=== PATIENT | male | born 1970 | race Caucasian/White ===

== ENCOUNTER 2024-10-05 12:33 | Outpatient (AMB) | payer OTHER, SELFPAY ==
[2024-10-05 12:59] VITALS: BP 150/90; PULSE 80; RESP 18; TEMP 36.1; O2SAT 97; BMI 32.7
--- NOTE | 2024-10-05 12:59 | MHC.PC.OV ---
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 Establish care Anger Control Counselor Required: No Accompanied by: Daughter Allergies No Known Allergies Allergy (Verified 10/05/24 13:09) Medication List - Last Reconciled 10/05/24 by BRAD Fairbanks No Known Home Meds Tobacco use date assessed: 10/05/24 Dental Screening Dental Screen Date: 10/05/24 Did you have a dental visit in the last 12 months?: Yes Did you have a dental problem in the last 6 months where you did not have access to dental care?: No Was dental information given to patient?: Patient has dentist HPI Glycerin Supervisor Establish care HPI Details The patient is 54 year old [place] speaking male. 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 Specialist: no OBGYN:n/a Past medical history: htn Medications:not on any medications Family HX:mother had ovarian cancer Problem: His blood pressure was noted to be elevated this year, but prior he has been in good health reports using salt, but not sure what is consider a large amount He denies smoking and only drinks beers socially He denies MANCIA, dizziness or lightheadedness denies chest pain, sob, or heart palpitation Denies abdominal pain or change in bowel habits Denies urinary symptoms 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 1. Little interest or pleasure in doing things: not at all 2. Feeling down, depressed, or hopeless: not at all 3. Trouble falling or staying asleep, or sleeping too much: not at all 4. Feeling tired or having little energy: not at all 5. Poor appetite or overeating: not at all 6. Feeling bad about yourself - or that you are a failure or have let yourself or your family down: not at all 7. Trouble concentrating on things, such as reading the newspaper or watching television: not at all 8. Moving or speaking so slowly that other people could have noticed. Or the opposite - being so fidgety or restless that you have been moving around a lot more than usual: not at all 9. Thoughts that you would be better off or of hurting yourself in some way: not at all Total score: 0 Depression Screening Interpretation: Negative Depression Screening Done: Yes 19604 - PHQ-9 Billing: Yes Source: Developed by Drs. Ariel Boss, Aarti Campos, Ronald Vargas and colleagues, with an educational yaya from [employer] [place]. Thrive Questionnaire Date Thrive assessed: 10/05/24 I am a: Patient What is your living situation today?: I have a steady place to live Within the past 12 months, did the food you bought not last and you didn't have the money to get more?: Never true Within the past 12 months, did you worry whether your food would run out before you got money to buy more?: Never true Do you have trouble paying for medicines?: No Do you have trouble getting transportation to medical appointments?: No Do you have trouble paying your heating and electricity bill?: No Do you have trouble taking care of your child, family member or friend?: No Do you have trouble with day-to-day activities such as bathing, preparing meals, shopping, managing finances, etc.?: No Are you currently unemployed and looking for a job?: No Are you interested in more education?: No Please select the resources that you would like help with: None Currently or been in a relationship where the following occur: No concerns reported THRIVE Score: 0 AUDIT C Alcohol Use Questionnaire (AUDIT-C) 1. How often do you have a drink containing alcohol?: Monthly or less 2. How many drinks containing alcohol do you have on a typical day when you are drinking?: 1 or 2 3. How often do you have six or more drinks on one occasion?: Never Total Score: 1 VEDA-7 AMB Questionnaire VEDA-7 Date VEDA - 7 assessed: 10/05/24 Feeling nervous, anxious, or on edge: 0 = Not at all Not being able to stop or control worryin = Not at all Worrying too much about different things: 0 = Not at all Trouble relaxin = Not at all Being so restless that it is hard to sit still: 0 = Not at all Becoming easily annoyed or irritable: 0 = Not at all Feeling afraid as if something awful might happen: 0 = Not at all Total VEDA-7 score (0-4 normal; 5-9 mild; 10-14 moderate; 15-21 severe): 0 Source: Developed by Drs. Ariel Boss, Aarti Campos, Ronald Vargas and colleagues, with an educational yaya from [employer] [place]. VEDA-7 Assessment Billing VEDA-7 Assessment Tool: VEDA-7 Assessment 88112 Review of Systems Const Denies headache(s) Eyes Denies loss of vision ENT Denies vertigo, Denies dizziness, Denies headache(s) and Denies sore throat Card Denies chest pain, Denies leg edema and Denies lightheadedness Resp Denies cough, Denies hemoptysis and Denies wheezing GI Denies abdominal pain, Denies melena, Denies constipation, Denies diarrhea and Denies vomiting Denies dysuria, Denies urinary frequency and Denies urinary urgency Musc Denies arthralgias, Denies joint swelling, Denies numbness and Denies tingling Neuro Denies Abnormal speech present, Denies behavioral changes, Denies vertigo, Denies dizziness, Denies headache(s), Denies loss of vision, Denies memory loss, Denies numbness and Denies tingling Psych Denies anxiety, Denies behavioral changes, Denies depression, Denies memory loss and Denies panic attacks Francisco Javier/Lymph Denies easy bleeding and Denies easy bruising Aller/Immun Denies wheezing Physical exam (Primary Care) Vital Signs: Last Vital Signs Temp 97 F 10/05/24 12:59 Pulse 80 10/05/24 12:59 Resp 18 10/05/24 12:59 BP 158/94 H 10/05/24 13:39 Pulse Ox 97 10/05/24 12:59 Oxygen Delivery Method Room Air 10/05/24 12:59 BMI result Body Mass Index 32.7 Tobacco/Smoking Status: Tobacco use Status Tobacco use date assessed 10/05/24 10/05/24 13:09 Patient Tobacco Use Status Never used Tobacco 10/05/24 13:09 e-Cigarette/Vaping Use Never Used 10/05/24 13:09 PHQ-9: PHQ-9 Score PHQ-9: Total score 0 10/05/24 13:11 Depression Screening Interpretation: Negative Thrive Assessment: Date of Thrive Assessment Date Thrive assessed 10/05/24 10/05/24 13:09 Currently or been in a relationship where the following occur: No concerns reported Const General: healthy appearing, no acute distress, alert and awake Nutritional Appearance: well nourished Orientation/consciousness: oriented to person, oriented to place and oriented to time HENMT Ears: TM's normal bilaterally General nose exam: Normal nasal mucous membranes and turbinates present Eyes Conjunctivae: conjunctivae normal Sclerae: sclerae normal Pupils: Equal, round and reactive pupils present Neck Neck: Yes no lymphadenopathy and Yes no JVD Thyroid: Thyroid normal Carotids: no bruits Resp Effort & Inspection: normal respiratory effort and not tachypneic Auscultation: no crackles, no rales, no rhonchi and no wheezes Cardio Rate: regular rate Rhythm: regular rhythm Heart sounds: no murmurs and normal S1 and S2 GI Palpation (GI): Soft to palpation, nontender, no hepatomegaly and no splenomegaly Auscultation: normal bowel sounds Skin General skin exam: no rashes or lesions noted and dry skin Neuro General: oriented to person, oriented to place and oriented to time Cranial nerves: Yes Equal, round and reactive pupils present Speech: No Abnormal speech present Gait exam (Neuro): Normal gait present Motor exam (neuro): no tremor noted Extrem Right upper extremity: full ROM Left upper extremity: full ROM Right lower extremity: full ROM; no edema Left lower extremity: full ROM; no edema Psych Mental Status: mental status grossly normal Speech and movement: Normal speech and movement present Affect: normal affect Attitude: cooperative Thought process: Normal thought process present Coding Level of Care Code New Pt Level 3 (71939) Diagnoses Encounter to establish care with new provider Z76.89 Hypertension, unspecified type I10 Hypertension type: unspecified Additional Codes PHQ-9 - 72022 - PHQ-9 Billing: Yes ([id number]) VEDA-7 Assessment Billing - VEDA-7 Assessment Tool: VEDA-7 Assessment 09370 ([id number]) Time Spent (min) 33 Assessment & Plan Assessment & Plan (1) Encounter to establish care with new provider: Code(s): Z76.89 - Persons encountering health services in other specified circumstances Category: Medical Plan: The patient is a 54 year old male establishing care. Will order labs and have the patient return for a full physical exam. The patient has not completed a colonoscopy, will discuss this further at his physical. (2) High blood pressure: Code(s): I10 - Essential (primary) hypertension Category: Medical Qualifiers: Hypertension type: unspecified Qualified Code(s): I10 - Essential (primary) hypertension Plan: The patient main reason for establishing care today was due to elevated blood pressure. 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 Reinforced low sodium diet. Lisinopril 5 mg daily started, return in one week to get blood pressure checked by nurse. Orders: Orders Complete Blood Count Auto Diff Today I10 - Essential (primary) hypertension, Z76.89 - Persons encountering health services in other specified circumstances Lipid Panel Today I10 - Essential (primary) hypertension, Z76.89 - Persons encountering health services in other specified circumstances TSH reflex Free T4 Today I10 - Essential (primary) hypertension, Z76.89 - Persons encountering health services in other specified circumstances PSA,Total (Free>4and<10) Today I10 - Essential (primary) hypertension, Z76.89 - Persons encountering health services in other specified circumstances Comprehensive [place]. Panel Fast Today I10 - Essential (primary) hypertension, Z76.89 - Persons encountering health services in other specified circumstances UA CC w/rflx Micro + Cult Today I10 - Essential (primary) hypertension, Z76.89 - Persons encountering health services in other specified circumstances Vitamin D 25-OH Total Today I10 - Essential (primary) hypertension, Z76.89 - Persons encountering health services in other specified circumstances Hemoglobin A1c Today I10 - Essential (primary) hypertension, Z76.89 - Persons encountering health services in other specified circumstances Medications: New lisinopril 5 mg PO DAILY 30 tabs 3RF Patient Instructions: complete preordered labs and return for complete physical in 7 weeks
[2024-10-05 13:39] VITALS: BP 158/94
== END 2024-10-05 13:46 | disposition home or self-care (01) ==
LOC: HO.HMCH 12:34
DX: Z76.89 Persons encountering health services in other specified circumstances (principal); I10 Essential (primary) hypertension

== ENCOUNTER → 2024-10-05 12:33 | Outpatient (BNVA) | payer OTHER, SELFPAY | DX: I10 Essential (primary) hypertension (principal); Z76.89 Persons encountering health services in other specified circumstances | CPT/HCPCS: 96127; 99202 ==

== ENCOUNTER 2024-10-06 07:47 | Outpatient (REF) | payer OTHER, SELFPAY ==
[2024-10-06 11:14] LABS: MANUAL DIFF FLAG NO
[2024-10-06 11:26] LABS: Appearance Urine Turbid; Glucose Urine UA Negative (Negative); PH 5.5 (5.0-9.0); Specific Gravity - Urine 1.020 (1.005-1.025)
[2024-10-06 11:29] LABS: Hematocrit 44.9 % (42.0-52.0); Hemoglobin 14.9 g/dl (14.0-18.0); Imm Gran Abs Auto 0.01 X10*3/uL (0.00-0.03); Imm Gran Pct Auto 0.2 % (0.0-0.4); Lymphocytes Absolute Auto 1.9 X10*3/uL (1.2-4.9); Mean Corpuscular HGB Conc 33.2 g/dl (31.0-36.0); Mean Corpuscular Hemoglobin 29.4 pg (27.0-33.0); Mean Corpuscular Volume 88.6 fL (80.0-98.0); NRBC Abs Auto 0.000 X10*3/uL (0.0-0.012); NRBC Pct Auto 0.0 /100WBC (0.0-0.2); Platelet Count 227 X10*3/uL (160-400); Red Blood Count 5.07 X10*6/uL (4.60-5.80); White Blood Count 5.9 X10*3/uL (4.8-10.8)
[2024-10-06 11:54] LABS: Hemoglobin A1C 153.8411 umol/L; Total Hemoglobin (HGBA1C) 3924.6780 umol/L
[2024-10-06 12:49] LABS: Alanine Aminotransferase 46 U/L (0-40); Albumin Level 4.7 g/dL (3.5-5.0); Alkaline Phosphatase 68 U/L (39-117); Anion Gap 14 (12-20); Aspartate Amino Transferase 25 U/L (5-37); Blood Urea Nitrogen 11 mg/dL (9-16); Calcium 9.2 mg/dL (8.4-10.2); Carbon Dioxide 26 mmol/L (22-29); Chloride 107 mmol/L (96-108); Cholesterol 263 mg/dL (<200); Estimated Glomerular Filt Rate > 60; HDL Cholesterol 43 mg/dL (>40); Potassium 4.0 mmol/L (3.3-5.1); Sodium 143 mmol/L (135-145); Total Protein 7.4 g/dL (6.5-8.0); Triglycerides 442 mg/dL (<150)
[2024-10-06 12:54] LABS: PSA,Total (Free>4and<10) 0.46 ng/mL (0.00-4.00)
== END 2024-10-06 07:48 | disposition home or self-care (01) ==
LOC: HO.WFDLDS 07:47
DX: Z12.5 Encounter for screening for malignant neoplasm of prostate (principal); I10 Essential (primary) hypertension; Z76.89 Persons encountering health services in other specified circumstances
CPT/HCPCS: 36415; 80053; 80061; 81003; 82306; 83036; 84153; 84443; 85025

== ENCOUNTER 2024-11-30 08:15 | Outpatient (AMB) | payer OTHER, SELFPAY ==
--- NOTE | 2024-11-30 08:25 | A.OFFPC_ITS ---
Vital Signs 11/30/24 08:26 Height 5 ft 8 in Weight 211 lb 2 oz BMI 32.1 BP 138/86 Blood Pressure Location Lt brachial Position Sitting Respiration 18 Pulse 81 Pulse Source Pulse Oximeter Temp 97.1 F Temp Source Temporal Artery Scan Pulse Oximetry (%) 96 Oxygen Delivery Method Room Air Intake Visit Reasons: Annual Exam Continuity Clerk Required: Yes Continuity Clerk Name: Yusef/Odalis Accompanied by: Self / Same As Patient Allergies No Known Allergies Allergy (Verified 11/30/24 08:42) Medication List - Last Reconciled 11/30/24 by BRAD Fairbanks lisinopril 10 mg PO DAILY Tobacco use date assessed: 11/30/24 Dental Screening Dental Screen Date: 11/30/24 Did you have a dental visit in the last 12 months?: No Did you have a dental problem in the last 6 months where you did not have access to dental care?: No Was dental information given to patient?: No HPI Annual Exam HPI Details Patient is presenting for annual physical. 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 Dentist: for long time, fillings at that time. Per patient, he only have issues with his blood pressure. Eye: NO exam for a while, see distance, and needs reading glasses, similarly, the patient does not thinks that it is necessary to screen for other things, and he is only concern about his blood pressure. Snellen: Right: Left: Corrected vision: readers STI screening: Colonoscopy: Never had, declines Pap Smer:n/a PHQ-9: Flu: no-not interested COVID: x 2 Tdap: three years ago Diet: regular Exercise: no The patient is a 54-year-old male presenting with essential hypertension. He was advised to continue lisinopril 10 mg, but his blood pressure remains slightly over the goal. The patient reports adding salt to his food, which may contribute to his hypertension. The patient also presents with hyperlipidemia, with triglycerides measured at 442 mg/dL, significantly above the normal range. He consumes sweets and fried foods, which may exacerbate his condition. The patient has been advised to make dietary changes to manage his lipid levels. Additionally, the patient has a skin lesion on his back, that has been bleeding. The lesion is described as accumulating blood and leaking, particularly after showering. [facility] Medical History High blood pressure Family History Mother No problems noted. 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 Current occupational exposures/hazards: No Cognitive needs: No Hearing needs: No Vision needs: No Questionnaire Thrive Questionnaire Date Thrive assessed: 09/29/24 I am a: Patient What is your living situation today?: I have a steady place to live Within the past 12 months, did the food you bought not last and you didn't have the money to get more?: Never true Within the past 12 months, did you worry whether your food would run out before you got money to buy more?: Never true Do you have trouble paying for medicines?: No Do you have trouble getting transportation to medical appointments?: No Do you have trouble paying your heating and electricity bill?: No Do you have trouble taking care of your child, family member or friend?: No Do you have trouble with day-to-day activities such as bathing, preparing meals, shopping, managing finances, etc.?: No Are you currently unemployed and looking for a job?: No Are you interested in more education?: No Please select the resources that you would like help with: None Currently or been in a relationship where the following occur: No concerns reported THRIVE Score: 0 VEDA-7 AMB Questionnaire VEDA-7 Date VEDA - 7 assessed: 10/05/24 Source: Developed by Drs. Ariel Boss, Aarti Campos, Ronald Vargas and colleagues, with an educational yaya from [employer]. Review of Systems Const Denies headache(s) Eyes Denies loss of vision ENT Denies vertigo, Denies dizziness, Denies headache(s) and Denies sore throat Card Denies chest pain, Denies leg edema and Denies lightheadedness Resp Denies cough, Denies hemoptysis and Denies wheezing GI Denies abdominal pain, Denies melena, Denies constipation, Denies diarrhea and Denies vomiting Denies dysuria, Denies urinary frequency and Denies urinary urgency Musc Denies arthralgias, Denies joint swelling, Denies numbness and Denies tingling Skin/Breast Reports lesions (upper back) Neuro Denies Abnormal speech present, Denies behavioral changes, Denies vertigo, Denies dizziness, Denies headache(s), Denies loss of vision, Denies memory loss, Denies numbness and Denies tingling Psych Denies anxiety, Denies behavioral changes, Denies depression, Denies memory loss and Denies panic attacks Francisco Javier/Lymph Denies easy bleeding and Denies easy bruising Aller/Immun Denies wheezing Physical exam (Primary Care) Vital Signs: Last Vital Signs Temp 97.1 F 11/30/24 08:26 Pulse 81 11/30/24 08:26 Resp 18 11/30/24 08:26 BP 138/86 11/30/24 08:26 Pulse Ox 96 11/30/24 08:26 Oxygen Delivery Method Room Air 11/30/24 08:26 BMI result Body Mass Index 32.1 Tobacco/Smoking Status: Tobacco use Status Tobacco use date assessed 11/30/24 11/30/24 08:29 Patient Tobacco Use Status Never used Tobacco 11/30/24 08:26 e-Cigarette/Vaping Use Never Used 11/30/24 08:26 Thrive Assessment: Date of Thrive Assessment Date Thrive assessed 09/29/24 11/30/24 08:26 Currently or been in a relationship where the following occur: No concerns reported Const General: healthy appearing, no acute distress, alert and awake Nutritional Appearance: well nourished Orientation/consciousness: oriented to person, oriented to place and oriented to time HENMT Ears: TM's normal bilaterally General nose exam: Normal nasal mucous membranes and turbinates present Eyes Conjunctivae: conjunctivae normal Sclerae: sclerae normal Pupils: Equal, round and reactive pupils present Neck Neck: Yes no lymphadenopathy and Yes no JVD Thyroid: Thyroid normal Carotids: no bruits Resp Effort & Inspection: normal respiratory effort and not tachypneic Auscultation: no crackles, no rales, no rhonchi and no wheezes Cardio Rate: regular rate Rhythm: regular rhythm Heart sounds: no murmurs and normal S1 and S2 GI Palpation (GI): Soft to palpation, nontender, no hepatomegaly and no splenomegaly Auscultation: normal bowel sounds Skin General skin exam: dry skin Lesions: lesion noted (skin tag to right upper back with small cut ) Neuro General: oriented to person, oriented to place, oriented to time and CN's II-XI intact bilaterally Cranial nerves: Yes Equal, round and reactive pupils present and Yes Nystagmus not present Speech: No Abnormal speech present Gait exam (Neuro): Normal gait present Motor exam (neuro): no tremor noted Deep tendon reflexes (DTR's): Right triceps reflex intensity grade: 2+, Left triceps reflex intensity grade: 2+, Rt Biceps (C5, C6): 2+, Left biceps reflex intensity grade: 2+, Right brachioradialis reflex intensity grade: 2+, Left brachioradialis reflex intensity grade: 2+, Right patellar reflex intensity grade: 2+ and Left patellar reflex intensity grade: 2+ Extrem Right upper extremity: full ROM Left upper extremity: full ROM Right lower extremity: full ROM; no edema Left lower extremity: full ROM; no edema Psych Mental Status: mental status grossly normal Speech and movement: Normal speech and movement present Affect: normal affect Attitude: cooperative Thought process: Normal thought process present Results Reviewed Results Reviewed: Laboratory Tests 10/06/24 10/06/24 07:49 08:30 WBC 5.9 RBC 5.07 Hgb 14.9 Hct 44.9 MCV 88.6 MCH 29.4 MCHC 33.2 RDW 12.7 Plt Count 227 MPV 10.8 Sodium 143 Potassium 4.0 Chloride 107 Carbon Dioxide 26 Anion Gap 14 BUN 11 Creatinine 0.92 Estimated GFR > 60 Fasting Glucose 101 H Estimat Average Glucose 117 Hemoglobin A1c % 5.7 Calcium 9.2 Total Bilirubin 0.6 AST 25 ALT 46 H Alkaline Phosphatase 68 Total Protein 7.4 Albumin 4.7 Triglycerides 442 H Cholesterol 263 H HDL Cholesterol 43 Total PSA 0.46 25-OH Vitamin D Total 51.1 TSH 1.84 Urine Color Yellow Urine Appearance Turbid Urine pH 5.5 Ur Specific [place] 1.020 Urine Protein Negative Urine Glucose (UA) Negative Urine Ketones Negative Urine Blood Negative Urine Nitrite Negative Ur Leukocyte Esterase Negative Coding Level of Care Code Est Pt Prev Care 40-64y(28395) Diagnoses Annual physical exam Z00.00 Hypertension, unspecified type I10 Hypertension type: unspecified Pure hypertriglyceridemia E78.1 Hyperlipidemia type: pure hypertriglyceridemia Elevated ALT measurement R74.01 Time Spent (min) 39 Assessment & Plan Assessment & Plan (1) Annual physical exam: Code(s): Z00.00 - Encounter for general adult medical examination without abnormal findings Category: Medical Plan: PREVENTATIVE GUIDELINES RECENT LABS REVIEWED WITH THE PATIENT. Patient I have never had a colonoscopy. Patient declines colonoscopy or Cologuard. Declines recommendations for dental or eye exam. (2) High blood pressure: Code(s): I10 - Essential (primary) hypertension Category: Medical Qualifiers: Hypertension type: unspecified Qualified Code(s): I10 - Essential (primary) hypertension Plan: Blood pressure 138/86, systolic goal 130 or less Encouraged the patient to decrease his salt intake Continue lisinopril 10 mg daily (3) HLD (hyperlipidemia): Code(s): E78.5 - Hyperlipidemia, unspecified Category: Medical Qualifiers: Hyperlipidemia type: pure hypertriglyceridemia Qualified Code(s): E78.1 - Pure hyperglyceridemia Plan: Triglycerides 442, total cholesterol 263, HDL 43 Discussed lifestyle modifications including dietary changes and physical activity We will recheck lipid panel in 3 months (4) Elevated ALT measurement: Code(s): R74.01 - Elevation of levels of liver transaminase levels Category: Medical Plan: ALT 46 Limit alcohol, drugs containing Tylenol or acetaminophen, fatty foods We will recheck CMP in 3 months Orders: Orders Comprehensive Met. Panel 3 Months E78.1 - Pure hyperglyceridemia, I10 - Essential (primary) hypertension, R74.01 - Elevation of levels of liver transam inase levels Lipid Panel 3 Months E78.1 - Pure hyperglyceridemia, I10 - Essential (primary) hypertension, R74.01 - Elevation of levels of liver transaminase levels Comprehensive [place]. Panel Fast 3 Months E78.1 - Pure hyperglyceridemia, I10 - Essential (primary) hypertension, R74.01 - Elevation of levels of liver transaminase levels TSH reflex Free T4 3 Months E78.1 - Pure hyperglyceridemia, I10 - Essential (primary) hypertension, R74.01 - Elevation of levels of liver transaminase levels UA CC w/rflx Micro + Cult 3 Months E78.1 - Pure hyperglyceridemia, I10 - Essential (primary) hypertension, R74.01 - Elevation of levels of liver transaminase levels Medications: Refilled lisinopril 10 mg PO DAILY 90 tabs 3RF
[2024-11-30 08:26] VITALS: BP 138/86; PULSE 81; RESP 18; TEMP 36.2; O2SAT 96; BMI 32.1
== END 2024-11-30 09:17 | disposition home or self-care (01) ==
LOC: HO.HMCH 08:15
DX: Z00.00 Encounter for general adult medical examination without abnormal findings (principal); I10 Essential (primary) hypertension; E78.1 Pure hyperglyceridemia; R74.01 Elevation of levels of liver transaminase levels

== ENCOUNTER → 2024-11-30 08:15 | Outpatient (BNVA) | payer OTHER, SELFPAY | DX: Z00.00 Encounter for general adult medical examination without abnormal findings (principal); I10 Essential (primary) hypertension; L98.9 Disorder of the skin and subcutaneous tissue, unspecified; E78.1 Pure hyperglyceridemia; R74.01 Elevation of levels of liver transaminase levels; Z79.899 Other long term (current) drug therapy | CPT/HCPCS: 99396 ==